=== PATIENT | male | born 2000 | race Hispanic/Latino ===

== ENCOUNTER 2021-10-08 08:49 | Emergency (ER) | payer SELFPAY ==
[~2021-10-08] VITALS: Ht 172.7 cm; Wt 63.5 kg
== END 2021-10-08 09:28 | disposition home or self-care (01) ==
LOC: ER 08:59
DX: K40.90 Unilateral inguinal hernia, without obstruction or gangrene, not specified as recurrent (principal)
CPT/HCPCS: 99282